=== PATIENT | male | born 1960 ===

== ENCOUNTER 2025-03-14 14:00 | Outpatient (AMB) | payer OTHER, SELFPAY ==
--- NOTE | 2025-03-14 14:08 | A.OFFVIS_ITS ---
Vital Signs 03/14/25 14:09 Height 5 ft 8 in Weight 198 lb 6.656 oz BMI 30.2 BP 161/85 H Blood Pressure Location Lt brachial Position Sitting Pulse 85 Pulse Source Pulse Oximeter Pulse Oximetry (%) 96 Oxygen Delivery Method Room Air Intake Visit Reasons: sleep apnea Intake Note: pt is here for inez, has been using the nose pads, Balance Engineer Required: No Allergies No Known Allergies Allergy (Verified 03/14/25 14:55) Medication List - Last Reconciled 03/14/25 by Padma Javed MD albuterol sulfate 90 mcg/actuation 2 puffs inhalation Q4H PRN amlodipine 5 mg PO DAILY montelukast 10 mg PO BEDTIME Do you need a note to return to daycare/school/sports/work: No HPI HPI sleep apnea: Details: NORMA BACON IS 64 YEARS OLD VERY 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 THIS GENTLEMAN IS USUALLY [facility]. HE HAS MILD HYPERTENSION WHICH IS BEING CONTROLLED WITH AMLODIPINE 5 MG DAILY. ALSO HAS HISTORY OF ALLERGIC RHINITIS WITH INTERMITTENT BOUTS OF NASAL CONGESTION, TREATED BY USING FLONASE P.R.N. AND ALSO MONTELUKAST 10 MG ONCE A DAY WHICH HE IS USING P.R.N.. THIS HAVE BEEN GOING ON. FOR MANY YEARS HE ALSO HAS MILD INTERMITTENT WHEEZING AND USES ALBUTEROL P.R.N. WHICH IS ONLY ONCE IN A WHILE. HE HAS BEEN MODERATELY OVERWEIGHT, AND NOW IS TRYING TO KEEP HIS WEIGHT UNDER CONTROL. HIS TELLS HIM THAT ONCE IN A WHILE HE DOES SNORE. HE HE DENIES HAVING ANY FREQUENT AWAKENINGS WITH GASPING LIKE FEELING. HE GETS GOOD SLEEP FOR AT LEAST 6-7 HOURS EVERY NIGHT. HE WAKES UP REFRESHED AND DURING THE DAYTIME DOES NOT HAVE ANY SLEEPINESS. FOR HIS WORK HE DRIVES FROM [employer] DAILY, AND HE HAS NEVER FELT TIRED AND SLEEPY WHILE DRIVING. BECAUSE OF HYPERTENSION AND HISTORY OF SNORING HE DID HAVE POLYSOMNOGRAM STUDY PERFORMED AT [facility] ON 1999 AND . THE SLEEP STUDY WAS POSITIVE FOR SLEEP APNEA WITH TOTAL SLEEP TIME AHI 11.2. OBSTRUCTIVE EVENTS WERE MORE PREDOMINANT DURING SLEEP IN SUPINE POSITION AND ALSO DURING REM SLEEP. IAN , SAYS THAT HE IS ACTIVELY LOSING WEIGHT. AT THE TIME OF SLEEP STUDY HIS WEIGHT WAS 201 LB, AND NOW HE IS DOWN TO 192 LB. [facility] Medical History (Updated 03/14/25 @ 15:22 by Padma Javed MD) Obesity (BMI 30-39.9) INEZ (obstructive sleep apnea) Asthma Allergic Social History Patient Tobacco Use Status: Former Tobacco user Review of Systems Const All systems reviewed & are unremarkable except as noted in HPI and below Eyes Reports no additional complaints ENT Reports nasal congestion (MILD INTERMITTENT) Card Denies chest pain, Denies edema and Denies irregular heart rhythm Resp Reports as per HPI GI Reports no additional complaints Reports no additional complaints Musc Reports no additional complaints Skin/Breast Reports system reviewed and no additional complaints, except as documented Neuro Reports no additional complaints Psych Reports no additional complaints Endo Reports no additional complaints Aller/Immun Reports no additional complaints Physical Exam Vital Signs: Last Vital Signs Pulse 85 03/14/25 14:09 BP 161/85 H 03/14/25 14:09 Pulse Ox 96 03/14/25 14:09 Oxygen Delivery Method Room Air 03/14/25 14:09 BMI result Body Mass Index 30.2 Const General: healthy appearing, comfortable, no acute distress, alert and awake Orientation/consciousness: patient oriented x3 HEENT Head: Yes normal to inspection General nose exam: No nasal polyps present and No nasal discharge present Face and sinus: Yes sinuses nontender Mouth: oropharynx normal Throat: Yes posterior oropharynx normal (MODERATELY CROWDED, MALLAMPATI CLASS 3) Eyes General: appearance normal, both eyes and all related structures Neck Neck: Yes normal visual inspection, Yes no lymphadenopathy, Yes trachea midline, Yes no JVD and Yes other (NECK CIRCUMFERENCE 16 IN) Thyroid: Thyroid normal Chest Chest palpation & inspection: normal inspection of the chest, normal palpation of entire chest wall and no tenderness Resp Effort & Inspection: normal respiratory effort, no cough and no stridor Auscultation: clear to auscultation bilaterally and no wheezes Cardio Palpation: normal PMI Rate: regular rate Rhythm: regular rhythm Heart sounds: no gallops and no murmurs Peripheral pulses: Peripheral pulses 2+ throughout GI Palpation (GI): Soft to palpation, nontender, No hepatosplenomegaly present and no masses Auscultation: normal bowel sounds Back/Spine/Pelvis Thoracic/Lumbar Spine: thoracic and lumbar spine normal to inspection Skin General skin exam: no rashes or lesions noted Neuro General: patient oriented x3 and no focal motor deficits Cranial nerves: Yes CN's II-XII intact bilaterally Extrem General: Yes normal to inspection, Yes no clubbing, cyanosis or edema and Yes no calf tenderness Psych Appearance: grossly normal and well kempt Speech and movement: Normal speech and movement present Results Reviewed Results Reviewed: POLYSOMNOGRAM STUDY AT [facility] ON 2024. RESULTS ARE REVIEWED. THE SLEEP EFFICIENCY WAS 84%. TOTAL SLEEP TIME AHI 11.2, SUPINE POSITION AHI 16.1 AND NONSUPINE POSITION AHI 7.5 ALSO REM SLEEP AHI 21 AND NON-REM AHI 9.1 Assessment & Plan Assessment & Plan (1) Allergic: Comment: THIS DOES HAVE HISTORY OF MILD INTERMITTENT NASAL CONGESTION SECONDARY TO ALLERGIC RHINITIS, IT IS RELATIVELY CONTROLLED. HE IS USING MONTELUKAST 10 MG ONCE A DAY BUT SAY IS HE USES ONLY P.R.N. WHEN HIS SYMPTOMS GET WORSE, OR HE USES FLONASE P.R.N. Code(s): T78.40XA - Allergy, unspecified, initial encounter Category: Medical Plan: OK TO USE FLONASE 2 SPRAY IN EACH NOSTRIL ONCE A DAY P.R.N. IF THERE IS NASAL CONGESTION. I DO NOT THINK HE HAS TO USE MONTELUKAST ON A P.R.N. BASIS. (2) Asthma: Comment: HAS HISTORY OF ONLY OCCASIONAL WHEEZING, ASSOCIATED WITH ALLERGIC RHINITIS. IT REPRESENTS MILD INTERMITTENT BRONCHIAL ASTHMA. Code(s): J45.909 - Unspecified asthma, uncomplicated Category: Medical Plan: ADVISED THAT HE MAY USE ALBUTEROL HFA 1 OR 2 PUFFS Q 6 HOURS ONLY P.R.N. (3) INEZ (obstructive sleep apnea): Comment: HE DOES HAVE OBSTRUCTIVE SLEEP APNEA, WHICH IS MILD, WITH TOTAL SLEEP TIME AHI 11 POINT 2. THERE IS MORE PREDOMINANCE IN SUPINE POSITION. PATIENT CLAIMS TO BE TOTALLY IS SYMPTOMATIC AT PRESENT. HE IS TRYING TO CONTROL HIS WEIGHT, Code(s): G47.33 - Obstructive sleep apnea (adult) (pediatric) Category: Medical Plan: I DISCUSSED THE TREATMENT OPTIONS WITH HIM, . AND HE UNDERSTANDS WELL WITH HISTORY OF HYPERTENSION AND ALSO SNORING 1 CAN USE CPAP EVEN IN CASE OF MILD SLEEP APNEA. HOWEVER HE CLAIMS THAT HIS SNORING IS MINIMAL, AND NOW HIS BLOOD PRESSURE IS CONTROLLED WITH MINIMAL DOSE OF AMLODIPINE. HE WOULD RATHER TRY TO TREAT HIS MILD SLEEP APNEA WITH CONSERVATIVE MEASURES , WHICH ARE FOLLOWS. 1- WEIGHT REDUCTION, I EXPLAINED TO HIM THAT IF HE CAN LOSE 10% OF THE CURRENT BODY WEIGHT HIS SLEEP APNEA WILL BE REDUCED BY MORE THAN 50%. HE SAY IS HE HAS ALREADY LOST SOME WEIGHT. THE GOAL WOULD BE TO BRING HIS WEIGHT DOWN TO 175 LB. 2- POSITION THERAPY : HE WILL TRY TO SLEEP IN NONSUPINE POSITIONS. I DID SUGGEST THAT HE CAN USE A WEDGE IN THE MIDDLE OF THE BED OR USE A SPECIAL POSITIONAL BELT. BUT HE THINKS HE CAN DO IT ON HIS OWN AND HE MAY TRY TO KEEP A PILLOW IN THE MIDDLE OF THE BED. 3- GENERAL SLEEP HYGIENE MEASURES ARE EXPLAINED. * IF AT ANY POINT SNORING IS MORE BOTHERSOME, OR IT BECOMES DIFFICULT TO KEEP THE BLOOD PRESSURE UNDER CONTROL, THEN HE SHOULD CONSIDER USING THE CPAP. I WOULD LIKE TO SEE HIM IN ABOUT 4 MONTHS AND MAKE SURE THAT HE IS COMPLYING WITH THE CONSERVATIVE MEASURES WITH SUCCESS. (4) Obesity (BMI 30-39.9): Comment: HE HAS MILD OBESITY. CURRENT BMI 30.2./ 198 LBS Code(s): E66.9 - Obesity, unspecified Category: Medical Plan: DISCUSSED ABOUT DIET AND EXERCISE AND NEED TO LOSE MORE WEIGHT. I SUGGESTED TO HIM THAT HIS IDEAL WEIGHT SHOULD BE 175 LB. HE IS PHYSICALLY VERY ACTIVE AND ATHLETIC. AND HE THINKS HE CAN EASILY CONTROL HIS WEIGHT. Coding Level of Care Code New Pt Level 3 (63727) Diagnoses Allergic T78.40XA Asthma J45.909 INEZ (obstructive sleep apnea) G47.33 Obesity (BMI 30-39.9) E66.9
[2025-03-14 14:09] VITALS: BP 161/85; PULSE 85; O2SAT 96; BMI 30.2
--- OUTSIDE RECORDS SUMMARY | 2025-03-14 14:52 | XMS_ITS | Clinical Summary ---
[facility] Address [address] [place] [address] Phone Care Team Providers Care Nail Welter Name Role Phone Mino Erickson MD Primary Care Provider [phone] Allergies Active Allergy Reactions Criticality Noted Date Comments Pollen Extracts Runny nose 12/06/2010 Medications albuterol HFA (PROAIR HFA ; PROVENTIL HFA ; VENTOLIN HFA) 90 mcg/actuation inhaler Inhale 2 puffs by mouth. 4 Active cetirizine (ZyrTEC) 10 mg tablet Take 1 tablet (10 mg total) by mouth 1 (one) time each day. 4 Active montelukast (SINGULAIR) 10 mg tablet Take 1 tablet (10 mg total) by mouth. 4 Active fluticasone propionate (FLONASE) 50 mcg/actuation nasal spray Administer 2 sprays into affected nostril(s). 4 Active budesonide (Pulmicort Flexhaler) 180 mcg/actuation inhaler Inhale 2 puffs by mouth. 4 Active sildenafiL (VIAGRA) 100 mg tablet Take 1 tablet (100 mg total) by mouth. 0 Active amLODIPine (NORVASC) 5 mg tablet Take 1 tablet (5 mg total) by mouth 1 (one) time each day. 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 HLD (hyperlipidemia) 06/03/2024 Primary hypertension 01/28/2024 Obstructive sleep apnea 08/20/2022 Onychomycosis 07/05/2022 History of COVID-19 08/02/2020 Pyogenic granuloma 06/10/2020 Erectile dysfunction 05/30/2011 Allergic rhinitis 12/07/2010 Mild intermittent asthma 12/07/2010 Encounters Date Type Department Care Team Description 02/18/2025 Telephone Pediatrics - [facility] [address] [place] [address] Mino Erickson MD Referral (Pulmonology Insurance Referral) 01/03/2025 Telephone Internal Medicine - [facility] [place] [address] Mino Erickson MD Referral 12/31/2024 8:51 AM EDT - 12/31/2024 11:59 PM EDT Hospital Encounter Ultrasound - [facility] [address] [place] [address] History of tobacco use Discharge Disposition: Home or Self Care from Last 3 Months Immunizations Name Administration Dates Next Due IPV Inactivated polio (Ipol) 6wks and older 05/26 Influenza trivalent, 0.5mL, preservative free (Fluarix; FluLaval; Fluzone) ages 6mo and older (Afluria) 3 years and older 05/30/2011 Influenza trivalent, with pr eservative (Fluzone; Afluria) 6mo and older 05/30/2011 Meningococcal Polysaccharide Conjugate MenACWY (MenQuadfi) 11yo to less than 19 yo 10/16/2022 Meningococcal, Unspecified 06/13/2009 easyOwn.it SARS-CoV-2 COVID-19, mRNA, LNP-S, preservative free 11/08/2020 Td Tetanus diptheria (Tdvax) 7yo and older 10/06 Td, Unspecified 09/28/2004 Tdap Tetanus diptheria acell ular pertussis (Boostrix; Adacel) 7yo and older 11/11/2022,01/30/2012 Medical History Medical History Date Comments Asthma DX:Asthma Hepatitis DX:Hepatitis; CO MMENT: hep C, cleared Seasonal allergies DX:Seasonal a llergies Erectile dysfunction 05/30/2011 DX:Erectile dysfunction Family History Medical History Relation Name Comments Alcohol abuse Father septic shock Mother Relation Name Status Comments Brother stroke, DM Father possible htn Maternal Grandfather DM Mother 2006 Other grandson stillb orn Social History Tobacco Use Types Packs/Day Years Used Date Smoking Tobacco: Former Cigarettes Q uit: 08/25/1996 Smokeless Tobacco: Never Tobacco Cessation:Counseling Given: Not Answered Alcohol Use Standard Drinks/Week Comments No 0 (1 standard drink = 0.6 oz pur e alcohol) Housing Instability Answer Date Recorde d Are you worried that in the next 2 months you may not have stable housing? No 09/26/2024 Food Access & Nutrition Answer Date Rec orded Do you have access to a vari ety of food including fruits and vegetables? Yes 09/26/2024 Access to Healthcare Answer Date Record ed Within the last 3 months, ho w many times did you visit the emergency department for your medical care? 0 09/26/2024 Health Literacy Answer Date Recorded How often do you need to hav e someone help you when you read instructions, pamphlets, or other written material from your doctor or pharmacy? Never 09/26/2024 Caregiver: How often do you need to have someone help you when you read instructions, pamphlets, or other written material from your doctor or pharmacy? Not on file 09/26/2024 Financial Risk Answer Date Recorded How hard is it for you to pa y for the very basics like food, housing, medical care, and air conditioning / heating? Not very hard 09/26/2024 Transportation Answer Date Recorded Has the lack of transportati on kept you from meetings, work, or from getting things needed for daily living? No Has the lack of transportati on kept you from medical appointments or from getting medications? No 09/26/2024 Social Isolation Answer Date Recorded How often do you feel lonely or isolated from th ose around you? Never 09/26/2024 Food Risk Answer Date Recorded Within the past 12 months we worried whether our food would run out before we got money to buy more. Never true 09/26/2024 Within the past 12 months th e food we bought just didn't last and we didn't have money to get more. Never true 09/26/2024 Dependent Care Answer Date Recorded Do you need help finding or paying for care for your loved ones. For example, early childhood educator aide or elderly care for an older adult? No 09/26/2024 Education Answer Date Recorded Do you think completing more education or training, like finishing a GED, going to college, or learning a trade, would be helpful for you? No 09/26/2024 Employment and Income Answer Date Recor ded During the last four weeks, have you been actively looking for work? No 09/26/2024 Living Situation Answer Date Recorded What is your living situation? 0 09/26/2024 Sex and Gender Information Value Date Recorded Sex Assigned at Not on file Legal Sex Male 8:13 PM EST Gender Identity Male 07/28/2024 2:39 PM EST Sexual Orientation Straight 07/28/2024 2: 51 PM EST Obstetrics History Last Filed Vital Signs Vital Sign Reading Time Taken Comments Blood Pressure 126/68 12/10/2024 9:21 AM EDT Pulse 84 12/10/2024 8:52 AM EDT Temperature - - Respiratory Rate 16 09/27/2024 2:34 PM EST Oxygen Saturation - - Inhaled Oxygen Concentration - - Weight 90.7 kg (200 lb) 12/10/2024 8:52 AM EDT Height 172.7 cm (5' 8 ) 12/10/2024 8:52 AM EDT Body Mass Index 30.41 12/10/2024 8:52 AM EDT Plan of Treatment Upcoming Encounters Date Type Department Care Team (Late st Contact Info) Description 06/13/2025 1:00 PM EDT Office Visit Internal Medicine - [facility] [address] [facility] [place] [phone] Yovani Antoine PA [address] [facility] [address] Health Maintenance Due Date Last Done Comments Pneumococcal Vaccine: 50+ Years (1 of 2 - PCV) 11/16/1978 IPV Vaccines (2 of 3 - Adult catch-up series) 07/11/2009 06/13/2009 Zoster Vaccines (1 of 2) 11/16/2009 RSV Immunization Adult Patients (1 - Risk 60-74 years 1-dose series) 2019 COVID-19 Vaccine (4 - season) 2024 09/10/2021, 11/30/2020, 11/08/2020 Influenza Vaccine (#1) 2025 05/30/2011, 2010 Social Influencers of Health Screening 09/26/2025 09/26/2024 Falls Risk Assessment 12/10/2025 12/10/2024 Hypertension/CHF/CAD Annual BMP Blood Test 02/15/2026 02/15/2025, 12/10/2024, 06/10/2024, Additional history exists Colorectal Cancer Screening: FIT-DNA (Cologuard) 11/21/2026 11/22/2023 Cholesterol Screening (Lipid Panel) 12/10/2029 12/10/2024, 01/28/2024, 01/28/2024 DTaP,Tdap,and Td Vaccines (5 - Td or Tdap) 11/11/2032 11/11/2022, 01/30/2012, 10/06/2007, Additional history exists Hepatitis C Screening Completed 03/23/2013 Meningococcal ACWY Vaccine Aged Out 10/16/2022, No longer eligible based on patient's age to complete this topic Depression Screening Completed 09/26/2024 Abdominal Aortic Aneurysm (AAA) Screen Completed 12/31/2024 HIB Vaccines Aged Out No longer eligi ble based on patient's age to complete this topic HPV Vaccines Aged Out No longer eligi ble based on patient's age to complete this topic Hepatitis A Vaccines Aged Out No long er eligible based on patient's age to complete this topic Hepatitis B Vaccines Aged Out No long er eligible based on patient's age to complete this topic MMR Vaccines Aged Out No longer eligi ble based on patient's age to complete this topic Meningococcal B Vaccine Aged Out No l onger eligible based on patient's age to complete this topic RSV Immunization Patients Under 20 months Aged Out No longer eligible based on patient's age to complete this topic Varicella Vaccines Aged Out No longer eligible based on patient's age to complete this topic Procedures Procedure Name Priority Date/Time Associated Diagnosis Comments EXTERNAL CLINICAL LAB 02/16/2025 VAS US DUPLEX AAA SCREENING Routine 12/31/2024 9:31 AM EDT History of tobacco use COMPREHENSIVE METABOLIC PANEL Routine 12/10/2024 9:55 AM EDT Health maintenance examination LIPID PANEL WITH REFLEX TO DIRECT LDL Routine 12/10/2024 9:55 AM EDT Health maintenance examination HM FIT-DNA Routine 11/22/2023 HEPATITIS C SCREENING Routine 03/23/2013 from Last 3 Months or Most Recently Relevant to Health Maintenance Results * External clinical lab (02/16/2025) Provider [facility] BLOOD ORDERABLES Fin al Result * Vascular US abdominal aorta aneurysm (AAA) screening (12/31/2024 9:31 AM EDT) Anatomical Region Laterality Modality Vascular, Abdomen Ultrasound 12/31/2024 12:0 5 PM EDT Impressions 12/31/2024 12:07 PM EDT No evidence of an abdominal aortic aneurysm. POS - [id number] -------- FINAL REPORT -------- Dictated By: Mena Younger Dictated Date: 12/31/2024 12:05 ET Assigned Physician: Mena Younger Reviewed and Electronically Signed By: Mena Younger Signed Date: 12/31/2024 12:07 ET Workstation ID: [id number] Transcribed By: Self Edit Transcribed Date: 12/31/2024 12:05 ET Narrative 12/31/2024 12:07 PM EDT EXAM: Abdominal aorta ultrasound, AAA screening HISTORY: AAA screening. History of tobacco use. COMPARISON: None FINDINGS: Exam limited by patient body habitus. No evidence of an abdominal aortic aneurysm. Proximal aorta measures 2.4 cm in maximal sagittal diameter. Mid aorta measures 2.0 cm. Distal aorta measures 1.4 cm. Proximal right common iliac artery measures 1.2 cm. Proximal left common iliac artery measures 1.2 cm. Procedure Note Mena Younger MD - 12/31/2024 EXAM: Abdominal aorta ultrasound, AAA screening HISTORY: AAA screening. History of tobacco use. COMPARISON: None FINDINGS: Exam limited by patient body habitus. No evidence of an abdominal aortic aneurysm. Proximal aorta measures 2.4cm in maximal sagittal diameter. Mid aorta measures 2.0 cm. Distal aortameasures 1.4 cm. Proximal right common iliac artery measures 1.2 cm.Proximal left common iliac artery measures 1.2 cm. IMPRESSION: No evidence of an abdominal aortic aneurysm. POS - [id number] -------- FINAL REPORT -------- Dictated By: Mena Younger Dictated Date: 12/31/2024 12:05 ET Assigned Physician: Mena Younger Reviewed and Electronically Signed By: Mena Younger Signed Date: 12/31/2024 12:07 ET Workstation ID: [id number] Transcribed By: Self Edit Transcribed Date: 12/31/2024 12:05 ET [facility] CV VASCULAR PROCEDURES Final Result * (ABNORMAL) Lipid panel with reflex to direct LDL (12/10/2024 9:55 AM EDT) Cholesterol 216(H) 0 - 200 mg/dL LAB CHEMISTRY METHOD 12/10/2024 3:49 PM EDT [facility] Triglycerides 105 0 - 150 mg/dL LAB CHEMISTRY METHOD 12/10/2024 3:49 PM EDT [facility] HDL 73 >=40 mg/dL LAB CHEMISTRY METHOD 12/10/2024 3:49 PM EDT [facility] LDL Calculated 122(H) 0 - 100 mg/dL LAB CHEMISTRY METHOD 12/10/2024 3:49 PM [facility] VLDL Cholesterol Yossi 21 mg/dL LAB CHEMISTRY METHOD 12/10/2024 3:49 PM EDT [facility] Non HDL Chol. (LDL+VLDL) 143 <145 mg/dL LAB CHEMISTRY METHOD 12/10/2024 3:49 PM EDT [facility] Chol/HDL Ratio 3.0 0.0 - 4.4 LAB CHEMISTRY METHOD 12/10/2024 3:49 PM [facility] Blood Venous blood specimen / Unknown Venipuncture / Unknown 12/10/2024 9:55 AM EDT 12/10/2024 9:55 AM EDT us Y[facility] LAB BLOOD ORDERABLES Fi nal Result [facility] [address] [place] [address], [place] [phone] * Comprehensive metabolic panel (12/10/2024 9:55 AM EDT) Sodium 140 133 - 145 mmol/L LAB CHEMISTRY METHOD 12/10/2024 3:49 PM [facility] Potassium 3.9 3.5 - 5.5 mmol/L LAB CHEMISTRY METHOD 12/10/2024 3:49 PM [facility] Chloride 107 96 - 110 mmol/L LAB CHEMISTRY METHOD 12/10/2024 3:49 PM [facility] CO2 28 21 - 32 mmol/L LAB CHEMISTRY METHOD 12/10/2024 3:49 PM [facility] Anion Gap 5 3 - 11 LAB CHEMISTRY METHOD 12/10/2024 3:49 PM [facility] Glucose 94 70 - 100 mg/dL LAB CHEMISTRY METHOD 12/10/2024 3:49 PM [facility] BUN 12 5 - 25 mg/dL LAB CHEMISTRY METHOD 12/10/2024 3:49 PM [facility] Creatinine 1.21 0.70 - 1.30 mg/dL LAB CHEMISTRY METHOD 12/10/2024 3:49 PM [facility] eGFR 66 >=60 mL/min/1. 73m2 LAB CHEMISTRY METHOD 12/10/2024 3:49 PM [facility] Comment:Calculation based on the Chronic Kidney Disease Epidemiology Collaboration (CKD-EPI) equation refit without adjustment for race. BUN/Creatinine Ratio 9.9 LAB CHEMISTRY METHOD 12/10/2024 3:49 PM [facility] Calcium 9.4 8.5 - 10.5 mg/dL LAB CHEMISTRY METHOD 12/10/2024 3:49 PM [facility] AST (SGOT) 17 10 - 42 unit/L LAB CHEMISTRY METHOD 12/10/2024 3:49 PM [facility] ALT (SGPT) 17 10 - 60 unit/L LAB CHEMISTRY METHOD 12/10/2024 3:49 PM [facility] Alkaline Phosphatase 87 42 - 121 unit/L LAB CHEMISTRY METHOD 12/10/2024 3:49 PM [facility] Total Protein 7.7 6.0 - 8.0 g/dL LAB CHEMISTRY METHOD 12/10/2024 3:49 PM [facility] Albumin 3.9 3.2 - 5.0 g/dL LAB CHEMISTRY METHOD 12/10/2024 3:49 PM [facility] Total Bilirubin 0.6 0.0 - 1.4 mg/dL LAB CHEMISTRY METHOD 12/10/2024 3:49 PM [facility] Blood Venous blood specimen / Unknown Venipuncture / Unknown 12/10/2024 9:55 AM EDT 12/10/2024 9:55 AM EDT us Yovani TOSCANO LAB BLOOD ORDERABLES Fi nal Result [facility] [address] [place] [address], * FIT-DNA (Cologuard) (11/22/2023) Pathologist [facility] Colorectal Cancer Screening: FIT-DNA (Cologuard) negative Historical Provider HEALTH MAINTENANCE Final Result * Hepatitis C Screening (03/23/2013) Pathologist [facility] Hepatitis C Screening abstracted Historical Provider HEALTH MAINTENANCE Final Result from Last 3 Months or Most Recently Relevant to Health Maintenance Insurance [place] [facility] Before the Call GENERIC MEDICARE Care Teams Nail Welter Relationship Specialty Start Date End Date Mino Erickson MD [address] [place] [address] [place] [address] PCP - General Internal Medicine 08/04/24
--- OUTSIDE RECORDS SUMMARY | 2025-03-14 14:52 | XMS_ITS | Referral Summary ---
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 Name Role Phone Patient, Has No Pcp Or Ref Primary Care Provider Unavailable Encounters Date Type Department Care Team Description 02/16/2025 Telephone [facility] Emergency Department [address] [place] [id number] Renetta Olson RN Left Without Being Seen; Results 02/15/2025 2:26 PM EDT - 02/15/2025 11:10 PM EDT Emergency [facility] Emergency Department [address] [place] [id number] Discharge Disposition: Left Without Being Seen (07) from Last 3 Months Allergies Active Allergy Reactions Criticality Noted Date Comments Pollen Extracts Itching,Nasal conges tion,Red Eye,Rhinorrhea High 10/16/2022 Medications Ventolin HFA 90 mcg/actuation inhaler 09/11/2022 Active Pulmicort Flexhaler 180 mcg/actuation inhaler 10/08/2022 Active montelukast (SINGULAIR) 10 mg tablet 06/30/2022 Active Active Problems No known active problems Immunizations Immunization Administration Dates Next Due Influenza, Trivalent, MDV, Injectable 05/30/2011 Meningococcal Polysaccharide (Groups A, C, Y, W-135) Tetanus Toxoid Conjugate (MenQuadfi) 10/16/2022 Tetanus Toxoid, Reduced Diph theria Toxoid, and Acellular Pertussis Vaccine, Adsorbed 01/30/2012 Tetanus and Diphtheria Toxoi ds, Adsorbed, Preservative Free (2 Lf of Tetanus Toxoid and 2 Lf of Diphtheria Toxoid) 10/06/2007 Social History Tobacco Use Types Packs/Day Years Used Date Smoking Tobacco: Former Cigarettes Passive Smoke Exposure: Past Smokeless Tobacco: Never Tobacco Cessation:Counseling Given: Not Answered Comments:Quit smoking 30 years Alcohol Use Standard Drinks/Week Comments Not Currently 0 (1 standard drink = 0.6 oz pur e alcohol) Quit 30 years ago Sex and Gender Information Value Date Recorded Sex Assigned at Male 02/15/2025 3:33 PM EDT Legal Sex Male 3:13 PM EST Gender Identity Not on file Sexual Orientation Not on file Last Filed Vital Signs Vital Sign Reading Time Taken Comments Blood Pressure 176/81 02/15/2025 2:37 PM EDT Pulse 76 02/15/2025 2:37 PM EDT Temperature 36.6 C (97.8 F) 02/15/2025 2:37 PM EDT Respiratory Rate 16 02/15/2025 2:37 PM EDT Oxygen Saturation 98% 02/15/2025 2:37 PM EDT Inhaled Oxygen Concentration - - Weight 88.9 kg (196 lb) 02/15/2025 2:37 PM EDT Height 172.7 cm (5' 8 ) 02/15/2025 2:37 PM EDT Body Mass Index 29.8 02/15/2025 2:37 PM EDT Plan of Treatment Not on file Procedures * Due to [place] law, this organization might not be sharing negative HIV tests. Procedure Name Priority Date/Time Associated Diagnosis Comments ECG 12-LEAD STAT 02/15/2025 2:32 PM EDT TROPONIN T HIGH SENSITIVITY STAT 02/15/2025 2:29 PM EDT BASIC METABOLIC PANEL STAT 02/15/2025 2:29 PM EDT CBC AUTO DIFFERENTIAL STAT 02/15/2025 2:29 PM EDT HEART & VASCULAR - SCANNED 02/15/2025 from Last 3 Months Results * Due to [place] law, this organization might not be sharing negative HIV tests. * ECG 12 lead (02/15/2025 2:32 PM EDT) Ventricular Rate EKG 77 BPM MUSE EKG Atrial Rate 77 BPM MUSE EKG IN Interval 126 ms MUSE EKG QRS Interval 84 ms MUSE EKG QT Interval 366 ms MUSE EKG QTC Interval 414 ms MUSE EKG P [place] 60 degrees MUSE EKG R [place] 25 degrees MUSE EKG T Wave [place] 36 degrees MUSE EKG 02/15/2025 2:32 PM EDT 02/26/2025 11:42 AM EDT Impressions MUSE EKG - 02/26/2025 11:42 AM EDT POOR DATA QUALITY, INTERPRETATION MAY BE ADVERSELY AFFECTED NORMAL SINUS RHYTHM NORMAL ECG NO PREVIOUS ECGS AVAILABLE Confirmed by Yovani Max ([id number]) on 02/26/2025 11:42:22 AM Narrative Procedure Note Yovani Max MD - 02/26/2025 IMPRESSION: POOR DATA QUALITY, INTERPRETATION MAY BE ADVERSELY AFFECTED NORMAL SINUS RHYTHM NORMAL ECG NO PREVIOUS ECGS AVAILABLE Confirmed by Yovani Max ([id number]) on 02/26/2025 11:42:22 AM us Protocol Unv Adult Treatment ECG ORDERABLES Final Result [facility] EKG * Troponin T, High Sensitivity (02/15/2025 2:29 PM EDT) Troponin T High Sensitivity <6 <=21 ng/L 02/15/2025 3:28 PM EDT [facility] Comment: Dt-Uqknnpia-S level of 52 ng/L or higher at 0-hour at presentation is recommended by the ESC 0/1-hour algorithm for identifying patients at high risk for ruling in acute myocardial infarction (AMI) in the appropriate clinical context. Repeat troponin testing 1-3 hours after the initial sample may be helpful in assessing for ongoing myocardial injury. Troponin elevations can be seen in several other non-infarct conditions, and the change (delta) should be evaluated in line with the 4th [place] Definition of AMI. Troponin baseline and serial elevation for a significant delta should be interpreted with clinical presentation, history, signs and symptoms, ECG, and biomarker concentrations. For inpatient setting: Value <12ng/L is considered negative for all genders. 0-1hr: A delta change of <3 will be considered negative/flat if chest pain onset >3 hours 0-3hr: A delta change of <7 will be considered negative/flat Blood Structure of peripheral vein / Unknown Venipuncture / Unknown 02/15/2025 2:29 PM EDT 02/15/2025 2:59 PM EDT us Protocol Unv Adult Treatment LAB BLOOD ORDERA BLES Final Result [facility] [address] [place] [address], [place] * (ABNORMAL) CBC Auto Differential (02/15/2025 2:29 PM EDT) WBC 6.2 3.8 - 10.8 10*3/uL 02/15/2025 3:05 PM EDT [facility] RBC 4.37 4.20 - 5.80 10*6/uL 02/15/2025 3:05 PM EDT [facility] Hemoglobin 13.6 13.2 - 17.1 g/dL 02/15/2025 3:05 PM EDT [facility] Hematocrit 38.0(L) 38.5 - 50.0 % 02/15/2025 3:05 PM EDT [facility] MCV 87.0 80.0 - 100.0 fL 02/15/2025 3:05 PM EDT [facility] MCH 31.1 27.0 - 33.0 pg 02/15/2025 3:05 PM EDT [facility] MCHC 35.8 32.0 - 36.0 g/dL 02/15/2025 3:05 PM EDT [facility] RDW 13.1 11.0 - 15.0 % 02/15/2025 3:05 PM EDT [facility] Platelets 241 140 - 400 10*3/uL 02/15/2025 3:05 PM EDT [facility] MPV 9.7 7.5 - 12.5 fL 02/15/2025 3:05 PM EDT [facility] Neutrophil % 62.8 % 02/15/2025 3:05 PM EDT [facility] Immature Grans % 0.2 0.0 - 0.9 % 02/15/2025 3:05 PM EDT [facility] Lymphocyte % 28.2 % 02/15/2025 3:05 PM EDT [facility] Monocyte % 7.1 % 02/15/2025 3:05 PM EDT [facility] Eosinophil % 1.5 % 02/15/2025 3:05 PM EDT [facility] Basophil % 0.2 % 02/15/2025 3:05 PM EDT [facility] Neutrophil # 3.88 1.50 - 7.80 10*3/uL 02/15/2025 3:05 PM EDT [facility] Immature Grans # <0.03 <=0.03 10*3/uL 02/15/2025 3:05 PM EDT [facility] Lymphocyte # 1.70 0.85 - 3.90 10*3/uL 02/15/2025 3:05 PM EDT [facility] Monocyte # 0.40 0.20 - 0.95 10*3/uL 02/15/2025 3:05 PM EDT [facility] Eosinophil # 0.10 0.02 - 0.50 10*3/uL 02/15/2025 3:05 PM EDT [facility] Basophil # <0.03 0.00 - 0.20 10*3/uL 02/15/2025 3:05 PM EDT [facility] nRBC % 0.0 /100 WBCs 02/15/2025 3:05 PM EDT [email or web address] nRBC # <0.01 <0.01 10*3/uL 02/15/2025 3:05 PM EDT [facility] Blood Structure of peripheral vein / Unknown Venipuncture / Unknown 02/15/2025 2:29 PM EDT 02/15/2025 2:57 PM EDT us Protocol Unv Adult Treatment MD LAB BLOOD ORDERA BLES Final Result [facility] [address] [place] [address], * (ABNORMAL) Basic Metabolic Panel (02/15/2025 2:29 PM EDT) NA 139 135 - 145 mmol/L 02/15/2025 3:28 PM EDT [facility] K 4.1 3.5 - 5.3 mmol/L 02/15/2025 3:28 PM EDT [facility] Cl 106 98 - 107 mmol/L 02/15/2025 3:28 PM EDT [facility] CO2 22 22 - 32 mmol/L 02/15/2025 3:28 PM EDT [facility] BUN 16 7 - 23 mg/dL 02/15/2025 3:28 PM EDT [facility] Creatinine 1.16 0.60 - 1.30 mg/dL 02/15/2025 3:28 PM EDT [facility] Glucose 113(H) 65 - 99 mg/dL 02/15/2025 3:28 PM EDT [facility] Calcium 8.8 8.6 - 10.5 mg/dL 02/15/2025 3:28 PM EDT [facility] Anion Gap 11 5 - 15 02/15/2025 3:28 PM EDT [facility] eGFR 70 >=60 mL/min/1. 73m2 02/15/2025 3:28 PM EDT [facility] Comment:The estimated glomer ular filtration rate (eGFR) is calculated using a new formula developed by the NKF-ASN task force to eliminate race-based correction factors. The new formula uses serum/plasma creatinine, age, and gender to determine eGFR. A value below 60mls/min might indicate kidney disease and will be flagged. For additional information, see Yonathan et al, Am J Kidney Dis. 2021;79(2):268- 288, A Unifying Approach for GFR estimation: Recommendations of the NKF-ASN Task Force on Reassessing the Inclusion of Race in Diagnosing Kidney Disease . Blood Structure of peripheral vein / Unknown Venipuncture / Unknown 02/15/2025 2:29 PM EDT 02/15/2025 2:59 PM EDT us Protocol Unv Adult Treatment MD LAB BLOOD ORDERA BLES Final Result [facility] [address] [place] [id number], * HEART & VASCULAR - SCANNED (02/15/2025) Anatomical Region Laterality Modality Other us Onbase Scan [place]ma SCANNED PROCEDURES Final Resu lt from Last 3 Months Insurance [facility] MEDICARE Care Teams Ornamental Metal Erector Relationship Specialty Start Date End Date Patient, Has No Pcp Or Ref DO NOT EDIT THIS RECORD VIA PROVIDER ON THE FLY PCP - General Biomass Plant Manager 07/09/22
== END 2025-03-14 14:57 | disposition home or self-care (01) ==
LOC: HO.HPS 14:01
PROVIDERS: PCP Internal Medicine; Visit Provider Internal Medicine
DX: T78.40XA Allergy, unspecified, initial encounter (principal); J45.909 Unspecified asthma, uncomplicated; G47.33 Obstructive sleep apnea (adult) (pediatric); E66.9 Obesity, unspecified
CPT/HCPCS: 99203

== ENCOUNTER 2025-07-04 13:43 | Outpatient (AMB) | payer OTHER, SELFPAY ==
[2025-07-04 13:55] VITALS: BP 120/70; PULSE 99; O2SAT 98; BMI 30.1
--- NOTE | 2025-07-04 13:55 | A.OFFVIS_ITS ---
Vital Signs 07/04/25 13:55 Height 5 ft 8 in Weight 198 lb BMI 30.1 BP 120/70 Blood Pressure Location Lt brachial Position Sitting Pulse 99 Pulse Source Pulse Oximeter Pulse Oximetry (%) 98 Oxygen Delivery Method Room Air Intake Visit Reasons: Sleep apnea Intake Note: pt is here for follow up and states he feels good, snoring has decreased, sleeps on his sides. [employer] Required: No Hat Finishing Materials Preparer: Hat Finishing Materials Preparer offered & declined Allergies No Known Allergies Allergy (Verified 07/04/25 14:11) Medication List - Last Reconciled 07/04/25 by Padma Javed MD albuterol sulfate 90 mcg/actuation 2 puffs inhalation Q4H PRN amlodipine 5 mg PO DAILY montelukast 10 mg PO BEDTIME Do you need a note to return to daycare/school/sports/work: No HPI HPI Sleep apnea: Details: THIS 64 YEARS OLD GENTLEMAN, IS MODERATELY OVERWEIGHT AND DOES HAVE DIAGNOSIS OF MILD INEZ. HE DECIDED TO TREAT THIS WITH CONSERVATIVE MEASURES AND IS DOING WELL. HE SLEEPS IN LATERAL POSITION THROUGHOUT THE NIGHT. ACCORDING TO HIS THE SNORING HAS DECREASED SIGNIFICANTLY. HE GETS SOLID SLEEP FOR 6-7 HOURS EVERY NIGHT. DENIES ANY DAYTIME SLEEPINESS. HE IS ALSO TRYING TO LOSE WEIGHT , BY MANAGING HIS DIET AND WALKING DAILY. 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 HE HAS MILD INTERMITTENT BRONCHIAL ASTHMA AND ALLERGIC RHINITIS BUT BOTH ARE UNDER GOOD CONTROL AND HE DOES NOT NEED TO USE ALBUTEROL. HE CONTINUES TO TAKE MONTELUKAST 10 MG DAILY. [facility] Medical History Obesity (BMI 30-39.9) INEZ (obstructive sleep apnea) Asthma Allergic Social History Patient Tobacco Use Status: Former Tobacco user Review of Systems Const All systems reviewed & are unremarkable except as noted in HPI and below Eyes Reports no additional complaints ENT Reports nasal congestion (MILD INTERMITTENT) Card Denies chest pain, Denies edema and Denies irregular heart rhythm Resp Reports as per HPI GI Reports no additional complaints Reports no additional complaints Musc Reports no additional complaints Skin/Breast Reports system reviewed and no additional complaints, except as documented Neuro Reports no additional complaints Psych Reports no additional complaints Endo Reports no additional complaints Aller/Immun Reports no additional complaints Physical Exam Vital Signs: Last Vital Signs Pulse 99 07/04/25 13:55 BP 120/70 07/04/25 13:55 Pulse Ox 98 07/04/25 13:55 Oxygen Delivery Method Room Air 07/04/25 13:55 BMI result Body Mass Index 30.1 Const General: healthy appearing, comfortable, no acute distress, alert and awake Orientation/consciousness: patient oriented x3 HEENT Head: Yes normal to inspection General nose exam: No nasal polyps present and No nasal discharge present Face and sinus: Yes sinuses nontender Mouth: oropharynx normal Throat: Yes posterior oropharynx normal (MODERATELY CROWDED, MALLAMPATI CLASS 3) Eyes General: appearance normal, both eyes and all related structures Neck Neck: Yes normal visual inspection, Yes no lymphadenopathy, Yes trachea midline, Yes no JVD and Yes other (NECK CIRCUMFERENCE 16 IN) Thyroid: Thyroid normal Chest Chest palpation & inspection: normal inspection of the chest, normal palpation of entire chest wall and no tenderness Resp Effort & Inspection: normal respiratory effort, no cough and no stridor Auscultation: clear to auscultation bilaterally and no wheezes Cardio Palpation: normal PMI Rate: regular rate Rhythm: regular rhythm Heart sounds: no gallops and no murmurs Peripheral pulses: Peripheral pulses 2+ throughout GI Palpation (GI): Soft to palpation, nontender, No hepatosplenomegaly present and no masses Auscultation: normal bowel sounds Back/Spine/Pelvis Thoracic/Lumbar Spine: thoracic and lumbar spine normal to inspection Skin General skin exam: no rashes or lesions noted Neuro General: patient oriented x3 and no focal motor deficits Cranial nerves: Yes CN's II-XII intact bilaterally Extrem General: Yes normal to inspection, Yes no clubbing, cyanosis or edema and Yes no calf tenderness Psych Appearance: grossly normal and well kempt Speech and movement: Normal speech and movement present Assessment & Plan Assessment & Plan (1) Obesity (BMI 30-39.9): Comment: HE HAS MILD OBESITY. CURRENT BMI 30.1./ 198 LBS Code(s): E66.9 - Obesity, unspecified Category: Medical Plan: ENCOURAGED TO KEEP ON LOSING WEIGHT WITH DIETARY CONTROL AND EXERCISE. GOAL IS 175 LB (2) INEZ (obstructive sleep apnea): Comment: HE DOES HAVE OBSTRUCTIVE SLEEP APNEA, WHICH IS MILD, WITH TOTAL SLEEP TIME AHI 11 POINT 2. THERE IS MORE PREDOMINANCE IN SUPINE POSITION. PATIENT CLAIMS TO BE TOTALLY ASYMPTOMATIC AT PRESENT. HE IS TRYING TO CONTROL HIS WEIGHT, Code(s): G47.33 - Obstructive sleep apnea (adult) (pediatric) Category: Medical Plan: LOSE WEIGHT EVEN THOUGH 1 OR 2 LB AT TIME. ALWAYS SLEEP IN LATERAL POSITIONS. (3) Allergic: Comment: THIS PATIENT DOES HAVE HISTORY OF MILD INTERMITTENT NASAL CONGESTION SECONDARY TO ALLERGIC RHINITIS, IT IS RELATIVELY CONTROLLED. HE IS USING MONTELUKAST 10 MG ONCE A DAY BUT SAY IS HE USES ONLY P.R.N. WHEN HIS SYMPTOMS GET WORSE, OR HE USES FLONASE P.R.N. Code(s): T78.40XA - Allergy, unspecified, initial encounter Category: Medical Plan: OK TO USE MONTELUKAST 10 MG ONCE A DAY FOR A FEW WEEKS AT A TIME P.R.N. IF SYMPTOMS GET ANY MORE PROMINENT (4) Asthma: Comment: HAS HISTORY OF ONLY OCCASIONAL WHEEZING, ASSOCIATED WITH ALLERGIC RHINITIS . IT REPRESENTS MILD INTERMITTENT BRONCHIAL ASTHMA. Code(s): J45.909 - Unspecified asthma, uncomplicated Category: Medical Plan: CONTINUE MONTELUKAST 10 MG DAILY IF SYMPTOMS GET ANY WORSE. AND MAY USE ALBUTEROL 2 PUFFS Q 6 HOURS P.R.N.. Coding Level of Care Code Est Pt Level 3 (94935) Diagnoses Obesity (BMI 30-39.9) E66.9 INEZ (obstructive sleep apnea) G47.33 Allergic T78.40XA Asthma J45.909
--- OUTSIDE RECORDS SUMMARY | 2025-07-04 15:53 | XMS_ITS | Clinical Summary ---
Author Organization [facility] Address [address] [place] [address] Care Team Providers Care Tool Drawing Checker Name Role Phone Ref, Has No Pcp Or Primary Care Provider Unavail able Allergies Active Allergy Reactions Criticality Noted Date [...] 02/15/2025 2:37 PM EDT Plan of Treatment Health Maintenance Due Date Last Done Comments Cologuard 1959 Colon Cancer Screening 1959 Colonoscopy 1959 FOBT / Fit Test 1959 HIV Screening 1959 Hepatitis C Screening 1959 Sigmoidoscopy 1959 Pneumococcal Vaccine: 50+ Years (1 of 2 - PCV) 11/16/1978 CT Lung Cancer Screening (Baseline) 11/16/2009 Zoster Vaccines (1 of 2) 11/16/2009 RSV Vaccine (60+ years old and patients) (1 - Risk 60-74 years 1-dose series) 2019 Alcohol/Substance Use Screening 08/25/2024 Depression Screening and Follow-Up 08/25/2024 Health Care Proxy Review 08/25/2024 Social Drivers of Health Annual Screening 08/25/2024 COVID-19 Vaccine ( - season) 2025 09/10/2021, 11/30/2020, 11/09/2020 Influenza Vaccine (#1) 2025 05/30/2011 Diabetes Screening 02/16/2028 02/15/2025, 12/10/2024 DTaP,Tdap,and Td Vaccines (3 - Td or Tdap) 11/11/2032 11/11/2022, 01/30/2012, 10/06/2007, Additional history exists Abdominal Aortic Aneurysm (AAA) Screening Completed 12/31/2024, 12/31/2024 Hepatitis B Vaccines Aged Out No long er eligible based on patient's age to complete this topic Procedures * Due to [place] state law, this organization might not be sharing negative HIV tests. Procedure Name Priority Date/Time Associated Diagnosis Comments BASIC METABOLIC PANEL STAT 02/15/2025 2:29 PM EDT from Last 3 Months or Most Recently Relevant to Health Maintenance Results * Due to [facility] law, this organization might not be sharing negative HIV tests. * (ABNORMAL) Basic Metabolic Panel (02/15/2025 2:29 PM EDT) NA 139 135 - 145 mmol/L 02/15/2025 3:28 PM EDT [facility] K 4.1 3.5 - 5.3 mmol/L 02/15/2025 3:28 PM EDT [facility] Cl 106 98 - 107 mmol/L 02/15/2025 3:28 PM EDT [facility] CO2 22 22 - 32 mmol/L 02/15/2025 3:28 PM EDT [facility] BUN 16 7 - 23 mg/dL 02/15/2025 3:28 PM EDT [facility] Creatinine 1.16 0.60 - 1.30 mg/dL 02/15/2025 3:28 PM EDT [facility] Glucose 113(H) 65 - 99 mg/dL 02/15/2025 3:28 PM EDT [facility] Calcium 8.8 8.6 - 10.5 mg/dL 02/15/2025 3:28 PM EDT [facility] Anion Gap 11 5 - 15 02/15/2025 3:28 PM EDT [facility] eGFR 70 >=60 mL/min/1. 73m2 02/15/2025 3:28 PM EDT [facility] Comment:The estimated glomer ular [...] MD LAB BLOOD ORDERA BLES Final Result [facility] [address] [place] [address], from Last 3 Months or Most Recently Relevant to Health Maintenance Insurance [facility] MEDICARE Care Teams Tool Drawing Checker Relationship Specialty Start Date End Date Ref, Has No Pcp Or DO NOT EDIT THIS RECORD VIA PROVIDER ON THE FLY PCP - General Irrigator 07/09/22
--- OUTSIDE RECORDS SUMMARY | 2025-07-04 15:53 | XMS_ITS | Clinical Summary ---
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 HLD (hyperlipidemia) 06/03/2024 Primary hypertension 01/28/2024 Obstructive sleep apnea 08/20/2022 Onychomycosis 07/05/2022 History of COVID-19 08/02/2020 Pyogenic granuloma 06/10/2020 Erectile dysfunction 05/30/2011 Allergic rhinitis 12/07/2010 Mild intermittent asthma 12/07/2010 Immunizations Immunization Administration Dates Next Due IPV Inactivated polio (Ipol) 6wks and older 05/26 Influenza trivalent, 0.5mL, preservative free (Fluarix; FluLaval; Fluzone) ages 6mo and older (Afluria) 3 years and older 05/30/2011 Influenza trivalent, with pr eservative (Fluzone; Afluria) 6mo and older 05/30/2011 Meningococcal Polysaccharide Conjugate MenACWY (MenQuadfi) 11yo to less than 19 yo 10/16/2022 Meningococcal, Unspecified 06/13/2009 MicroPort ([place]) SARS-CoV-2 COVID-19, mRNA, LNP-S, preservative free 11/08/2020 [...] Years Used Date Smoking Tobacco: Former Cigarettes 0.1 Q uit: 08/25/1996 Smokeless Tobacco: Never Tobacco [...] care for your loved ones. For example, child psychometrist or elderly care for an older adult? [...] Date Recorded What is your living situation? Unrecognized valu e 09/26/2024 Sex and Gender Information Value Date [...] Care Team (Late st Contact Info) Description 07/18/2025 1:00 PM EST Office Visit [facility] [address] [place] [address] Yovani Antoine PA [address] [place] [address] Health Maintenance Due Date Last Done Comments Pneumococcal Vaccine: 50+ Years (1 of 2 - PCV) 11/16/1978 IPV Vaccines (2 of 3 - Adult catch-up series) 07/11/2009 06/13/2009 RSV Immunization Adult Patients (1 - Risk 50-74 years 1-dose series) 11/16/2009 Zoster Vaccines (1 of 2) 11/16/2009 COVID-19 Vaccine (4 - season) 2025 09/10/2021, 11/30/2020, 11/08/2020 Influenza Vaccine (#1) 2025 [...] on patient's age to complete this topic Abdominal Aortic Aneurysm (AAA) Screen Completed 12/31/2024 Depression Screening Completed 06/12/2025 HIB Vaccines Aged Out No longer eligi [...] Procedure Name Priority Date/Time Associated Diagnosis Comments VAS US DUPLEX AAA SCREENING Routine 12/31/2024 9:31 AM EDT History of tobacco use COMPREHENSIVE METABOLIC PANEL Routine 12/10/2024 9:55 AM EDT Health maintenance examination LIPID PANEL WITH REFLEX TO DIRECT LDL Routine 12/10/2024 9:55 AM EDT Health maintenance examination FIT-DNA Routine 11/22/2023 HEPATITIS C SCREENING Routine 03/23/2013 from Last 3 Months or Most Recently Relevant to Health Maintenance Results * Vascular US abdominal aorta aneurysm (AAA) screening (12/31/2024 9:31 AM EDT) Anatomical Region Laterality Modality Vascular, Abdomen Ultrasound 12/31/2024 12:0 5 PM EDT Impressions 12/31/2024 12:07 PM EDT No evidence of an abdominal aortic aneurysm. POS - [id number] -------- FINAL REPORT -------- Dictated By: Mena Younger Dictated Date: 12/31/2024 12:05 ET Assigned Physician: Mena Younger Reviewed and Electronically Signed By: Mena Younger Signed Date: 12/31/2024 12:07 ET Workstation ID: [id number] Transcribed By: Self Edit Transcribed Date: 12/31/2024 [...] of an abdominal aortic aneurysm. POS - [id number] -------- FINAL REPORT -------- Dictated By: Mena Younger Dictated Date: 12/31/2024 12:05 ET Assigned Physician: Mena Younger Reviewed and Electronically Signed By: Mena Younger Signed Date: 12/31/2024 12:07 ET Workstation ID: [id number] Transcribed By: Self Edit Transcribed Date: 12/31/2024 12:05 ET Yovani TOSCANO CV VASCULAR PROCEDURES Final Result * (ABNORMAL) Lipid panel with reflex to direct LDL (12/10/2024 9:55 AM EDT) Cholesterol 216(H) 0 - 200 mg/dL LAB CHEMISTRY METHOD 12/10/2024 3:49 PM EDT [facility] Triglycerides 105 0 - 150 mg/dL LAB CHEMISTRY METHOD 12/10/2024 3:49 PM EDT [facility] HDL 73 >=40 mg/dL LAB CHEMISTRY METHOD 12/10/2024 3:49 PM EDT [facility] LDL Calculated 122(H) 0 - 100 mg/dL LAB CHEMISTRY METHOD 12/10/2024 3:49 PM EDT [facility] VLDL Cholesterol Yossi 21 mg/dL LAB CHEMISTRY METHOD 12/10/2024 3:49 PM EDT [facility] Non HDL Chol. (LDL+VLDL) 143 <145 mg/dL LAB CHEMISTRY METHOD 12/10/2024 3:49 PM EDT [facility] Chol/HDL Ratio 3.0 0.0 - 4.4 LAB CHEMISTRY METHOD 12/10/2024 3:49 PM EDT [facility] Blood Venous blood specimen / Unknown Venipuncture / Unknown 12/10/2024 9:55 AM EDT 12/10/2024 9:55 AM EDT us Yovani TOSCANO LAB BLOOD ORDERABLES Fi nal Result [facility] [address] [place] [address], [place] [phone] * Comprehensive metabolic panel (12/10/2024 9:55 AM EDT) Sodium 140 133 - 145 mmol/L LAB CHEMISTRY METHOD 12/10/2024 3:49 PM [facility] Potassium 3.9 3.5 - 5.5 mmol/L LAB CHEMISTRY METHOD 12/10/2024 3:49 PM [facility] Chloride 107 96 - 110 mmol/L LAB CHEMISTRY METHOD 12/10/2024 3:49 PM [facility] CO2 28 21 - 32 mmol/L LAB CHEMISTRY METHOD 12/10/2024 3:49 PM [facility] Anion Gap 5 3 - 11 LAB CHEMISTRY METHOD 12/10/2024 3:49 PM [facility] Glucose 94 70 - 100 mg/dL LAB CHEMISTRY METHOD 12/10/2024 3:49 PM [facility] BUN 12 5 - 25 mg/dL LAB CHEMISTRY METHOD 12/10/2024 3:49 PM [facility] Creatinine 1.21 0.70 - 1.30 mg/dL LAB CHEMISTRY METHOD 12/10/2024 3:49 PM [facility] eGFR 66 >=60 mL/min/1. 73m2 LAB CHEMISTRY METHOD 12/10/2024 3:49 PM [facility] Comment:Calculation based on the Chronic Kidney Disease Epidemiology Collaboration (CKD-EPI) equation refit without adjustment for race. BUN/Creatinine Ratio 9.9 LAB CHEMISTRY METHOD 12/10/2024 3:49 PM [facility] Calcium 9.4 8.5 - 10.5 mg/dL LAB CHEMISTRY METHOD 12/10/2024 3:49 PM [facility] AST (SGOT) 17 10 - 42 unit/L LAB CHEMISTRY METHOD 12/10/2024 3:49 PM [facility] ALT (SGPT) 17 10 - 60 unit/L LAB CHEMISTRY METHOD 12/10/2024 3:49 PM [facility] Alkaline Phosphatase 87 42 - 121 unit/L LAB CHEMISTRY METHOD 12/10/2024 3:49 PM EDT [facility] Total Protein 7.7 6.0 - 8.0 g/dL LAB CHEMISTRY METHOD 12/10/2024 3:49 PM EDT [facility] Albumin 3.9 3.2 - 5.0 g/dL LAB CHEMISTRY METHOD 12/10/2024 3:49 PM EDT [facility] Total Bilirubin 0.6 0.0 - 1.4 mg/dL LAB CHEMISTRY METHOD 12/10/2024 3:49 PM EDT [facility] Blood Venous blood specimen / Unknown Venipuncture / Unknown 12/10/2024 9:55 AM EDT 12/10/2024 9:55 AM EDT Yovani TOSCANO LAB BLOOD ORDERABLES Fi nal Result Performing Organization Address City/State/[facility] Co de Phone Number [facility] [address] [place] [address], * FIT-DNA (Cologuard) (11/22/2023) [facility] Colorectal Cancer Screening: FIT-DNA (Cologuard) negative Historical Provider HEALTH MAINTENANCE Final Result * Hepatitis C Screening (03/23/2013) [facility] Hepatitis C Screening abstracted Historical Provider HEALTH MAINTENANCE Final Result from Last 3 Months or Most Recently Relevant to Health Maintenance Insurance [facility] COMMERCIAL GENERIC MEDICARE Care Teams Behavioral Medical Director Relationship Specialty Start Date End Date Mino Erickson MD [address] [place] [address] [place] [id number] PCP - General Internal Medicine 08/04/24
== END 2025-07-04 14:11 | disposition home or self-care (01) ==
LOC: HO.HPS 13:43
PROVIDERS: PCP Internal Medicine; Visit Provider Internal Medicine
DX: E66.9 Obesity, unspecified (principal); G47.33 Obstructive sleep apnea (adult) (pediatric); T78.40XA Allergy, unspecified, initial encounter; J45.909 Unspecified asthma, uncomplicated
CPT/HCPCS: 99213